=== PATIENT | female | born 1975 | race Caucasian/White ===

== ENCOUNTER → 2020-11-16 | Outpatient (CLI) | payer BC ==
--- NOTE | 2020-11-16 14:54 | RAD ---
PROCEDURE: XR FOOT_LEFT 3 VIEWS STUDY DATE: 11/16/2020 CLINICAL INDICATION / HISTORY: Reason: FOOT PAIN / Spl. Instructions: / History: . TECHNIQUE: Oblique and weightbearing AP and lateral views of the left foot. COMPARISON: None FINDINGS: No fracture or dislocation is identified. The bone density is normal. The joint space width s are maintained, and there are no erosions to suggest an inflammatory arthropathy. Mild soft tissue swelling on the dorsum of the forefoot over the metatarsals is seen on the lateral view.. IMPRESSION: Minimal soft tissue swelling on the dorsum of the forefoot. Otherwise unremarkable left f oot x-rays. Electronically signed by: Isabell Cortez MD (11/16/2020 2:51 PM) [id number]
== END ==
LOC: DXRAD 09:56
DX: M20.22 Hallux rigidus, left foot (principal); M79.89 Other specified soft tissue disorders
CPT/HCPCS: 73630

== ENCOUNTER 2021-05-26 13:04 | Emergency (ER) | payer BC ==
[~2021-05-26] VITALS: Ht 162.6 cm; Wt 82.0 kg
--- NOTE | 2021-05-26 13:38 | PHYS DOC ---
General Adult EDM: Chief Complaint: HEADACHE HPI: HPI: 45-year-old female presents with migraine headache. Patient has had a headache for about a week. It is a pressure sensation that tends to move around her head. Is currently on the right side. She has tried her prescribed medications with no relief. She has a long history of migraines and is on several medications. She has photophobia. She denies fever or chills. She has not had any nausea or vomiting. Review of Systems: Review of Systems: Constitutional: Denies fever or chills Eyes: Denies change in visual acuity HENT: Denies nasal congestion or sore throat Respiratory: Denies cough or shortness of breath Cardiovascular: Denies chest pain or edema GI: Denies abdominal pain, nausea, vomiting, bloody stools or diarrhea : Denies dysuria Musculoskeletal: Denies back pain or joint pain Integument: Denies rash Neurologic: Headache. Denies focal weakness or sensory changes Endocrine: Denies polyuria or polydipsia Lymphatic: Denies swollen glands Psychiatric: Denies depression or anxiety Current Medications: Current Meds: Current Medications Medications (Trade) Dose Ordered Sig/Janae Start Time Stop Time Status Last Admin Dose Admin Diphenhydramine HCl (Benadryl) 50 mg 1X ONCE 05/26/21 13:30 05/26/21 13:31 UNV Ketorolac Tromethamine (Toradol 30mg Vial) 30 mg 1X ONCE 05/26/21 13:30 05/26/21 13:31 UNV Methylprednisolone Sodium Succinate (SOLU-Medrol 125MG VIAL) 125 mg 1X ONCE 05/26/21 13:30 05/26/21 13:31 UNV Metoclopramide HCl (Reglan Vial) 10 mg 1X ONCE 05/26/21 13:30 05/26/21 13:31 UNV Sodium Chloride 1,000 ml @ 1,000 mls/hr 1X ONCE 05/26/21 13:30 05/26/21 14:29 UNV Physical Exam: PE: Constitutional: Well developed, well nourished, obese, no acute distress, non- toxic appearance. [] HENT: Normocephalic, atraumatic, bilateral external ears normal, oropharynx moist, no oral exudates, nose normal. Photophobia. [] Eyes: PERRLA, EOMI, conjunctiva normal, no discharge. [] Neck: Normal range of motion, no tenderness, supple, no stridor. [] Cardiovascular: Heart rate 82, regular rhythm, no murmur [] Lungs & Thorax: Bilateral breath sounds clear to auscultation [] Abdomen: Bowel sounds normal, soft, no tenderness, no masses, no pulsatile masses. [] Skin: Warm, dry, no erythema, no rash. [] Back: No tenderness, no CVA tenderness. [] Extremities: No tenderness, no cyanosis, no clubbing, ROM intact, no edema. [] Neurologic: Alert and oriented X 3, normal motor function, normal sensory function, no focal deficits noted. [] Psychologic: Affect normal, judgement normal, mood normal. [] EKG: EKG: [] Radiology/Procedures: Radiology/Procedures: [] Heart Score: C/O Chest Pain: N/A Risk Factors: Risk Factors: DM, Current or recent (<one month) smoker, HTN, HLP, family history of CAD, obesity. Risk Scores: Score 0 - 3: 2.5% MACE over next 6 weeks - Discharge Home Score 4 - 6: 20.3% MACE over next 6 weeks - Admit for Clinical Observation Score 7 - 10: 72.7% MACE over next 6 weeks - Early Invasive Strategies Course & Med Decision Making: Course & Med Decision Making Pertinent Labs and Imaging studies reviewed. (See chart for details) The patient's labs are unremarkable. For her headache I gave her a liter normal saline, 125 mg Solu-Medrol, 30 mg of Toradol, 50 mg of Benadryl, and 10 mg of Reglan. She is feeling better at this time. She is stable for discharge. [] Dragon Disclaimer: Dragon Disclaimer: This electronic medical record was generated, in whole or in part, using a voice recognition dictation system. Departure Departure: Impression: Primary Impression: Migraine headache Qualified Codes: G43.911 - Migraine, unspecified, intractable, with status migrainosus Disposition: HOME / SELF CARE / HOMELESS Condition: IMPROVED Referrals: HEATHER MAGALLANES MD (PCP) Patient Instructions: Migraine Headache, [id number] GILDA DENISE DO May 26, 2021 13:38
[2021-05-26 13:51] LABS: BASO # 0.1 x10^3/uL (0.0-0.2); BASO % 1 % (0-3); EOS # 0.6 x10^3/uL (0.0-0.7); EOS % 8 % (0-3); HEMATOCRIT 39.8 % (36.0-47.0); HEMOGLOBIN 13.4 g/dL (12.0-15.5); LYMPH # 2.3 x10^3/uL (1.0-4.8); LYMPH % 28 % (24-48); MEAN CORPUSCULAR HEMOGLOBIN 31 pg (25-35); MEAN CORPUSCULAR HGB CONC 34 g/dL (31-37); MEAN CORPUSCULAR VOLUME 92 fL (79-100); MONO # 0.6 x10^3/uL (0.0-1.1); MONO % 8 % (0-9); NEUT # 4.6 x10^3uL (1.8-7.7); NEUT % 56 % (31-73); PLATELET COUNT 337 x10^3/uL (140-400); RED BLOOD COUNT 4.31 x10^6/uL (3.50-5.40); RED CELL DISTRIBUTION WIDTH 13.1 % (11.5-14.5); WHITE BLOOD COUNT 8.3 x10^3/uL (4.0-11.0)
[2021-05-26 13:56] LABS: CREATININE 1.1 mg/dL (0.6-1.0); GFR 53.2; POTASSIUM 3.6 mmol/L (3.5-5.1)
[2021-05-26 14:02] LABS: ALBUMIN 3.4 g/dL (3.4-5.0); ALBUMIN/GLOBULIN RATIO 0.9 (1.0-1.7); TOTAL BILIRUBIN 0.3 mg/dL (0.2-1.0); TOTAL PROTEIN 7.2 g/dL (6.4-8.2)
[2021-05-26] MEDS: METOCLOPRAMIDE HCL 10 MG/2 ML VIAL. IVP ONE ×2 (14:05→17:26)
[2021-05-26] MEDS: KETOROLAC 30 MG/ML VIAL. IVP ONE (14:05)
[2021-05-26] MEDS: methylPREDNISolone SOD SUCC PF 125 MG/2 ML VIAL. IV ONE (14:05)
[2021-05-26] MEDS: IV NORMAL SALINE 1,000ML 1,000 ML IV ONE (14:06)
[2021-05-26] MEDS: diphenhydrAMINE 50 MG/ML VIAL IVP ONE (14:06)
[2021-05-26 14:09] VITALS: BP 152/87
== END 2021-05-26 17:22 | disposition home or self-care (01) ==
LOC: ER 13:04
DX: G43.909 Migraine, unspecified, not intractable, without status migrainosus (principal)
CPT/HCPCS: 36415; 80053; 85025; 96361; 96374; 96375; 96376; 99284; J1200; J1885; J2765; J2930; J7030